=== PATIENT | female | born 1990 | race American Indian/Alaskan Native ===

== ENCOUNTER 2021-03-21 16:04 | Emergency (ER) | payer MEDICAID ==
[2021-03-21] MEDS ORDERED: ALBUTEROL 2.5 MG/3 ML NEBU IH ONE (16:17)
[2021-03-21] MEDS ORDERED: IPRATROPIUM 0.02% NEBU 2.5 ML IH ONE (16:17)
--- NOTE | 2021-03-21 16:21 | Event Note ---
ED Screening Note Date of service: 03/21/21 Time: 16:19 ED Screening Note: 30-year-old female patient with history of asthma presents to the emergency department with complaints of acute onset shortness of breath starting 2 hours ago. States she does not have a rescue inhaler. Symptoms are reminiscent of prior asthma exacerbations. Heart rate in the 80s. Oxygen saturation 100% on room air. General: Awake, appropriately interactive, appears uncomfortable. Neck: Supple. Full range of motion intact. Cardiovascular: Regular rate and rhythm. Normal peripheral perfusion. Pulmonary: Mild respiratory distress. Increased work of breathing. Diminished air movement. No wheezing or stridor. Skin: No apparent rashes or lesions. Neurological: No facial asymmetry. Speech is clear. Follows commands. Patient is alert and oriented. Musculoskeletal: Moves all four extremities spontaneously with normal range of motion. Psych: Cooperative. Appropriate mood and affect. Breathing treatment ordered. Respiratory therapist notified. EMT notified. I have greeted and performed a focused rapid initial assessment of this patient. A comprehensive ED assessment and evaluation of the patient, analysis of all test results, and completion of the medical decision-making process will be conducted by additional ED providers. This initial assessment/diagnostic orders/clinical plan/treatment(s) is/are subject to change based on patients health status, clinical progression and re-assessment. Further treatment and workup at subsequent clinical provider's discretion. Patient/guardian urged not to elope from the ED as their condition may be serious if not clinically assessed and managed.
[2021-03-21] MEDS ORDERED: ACETAMINOPHEN 325 MG TAB PO ONE (16:34)
[2021-03-21] MEDS ORDERED: predniSONE 50 MG TAB PO ONE (16:34)
--- NOTE | 2021-03-21 16:40 | Emergency Department Report ---
ED Asthma HPI - General Chief Complaint: Adult Asthma Stated Complaint: ASTHMA ATTACK Time Seen by Provider: 03/21/21 16:23 Source: patient Mode of arrival: Ambulatory Limitations: No Limitations - History of Present Illness Initial Comments: 30 year old female with known hx of asthma presents to ED with complaints of having an asthma attack. 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 She states she started with diffuse anterior chest and neck pain, as well as SOB, and wheezing. She states she did not have her inhaler. She states she hasn't had an inhaler in about 2 years. She also does not have a nebulizer. She states the last time she had a flare up of her asthma was about 1 yr ago. She states she went to [facility] ER and she was given nebulizer tx but was not given an rx for an inhaler. She denies any sore throat, cough, URI symptoms, fever chills or any other symptoms at this time. States that she is never been intubated or admitted for asthma in the past. MD Complaint: "asthma attack" -: Sudden (around 2 pm this afternoon ) - Related Data Previous Rx's Medication Instructions Recorded Last Taken Type Albuterol Mdi (or & Nicu Only) 2 puff IH QID PRN #8.5 gram 03/21/21 Unknown Rx [ProAir HFA Inhaler] predniSONE [Deltasone] 50 mg PO QDAY #4 tab 03/21/21 Unknown Rx Allergies Allergy/AdvReac Type Severity Reaction Status Date / Time No Known Allergies Allergy Unverified 03/21/21 16:11 ED Review of Systems ROS: Stated complaint: ASTHMA ATTACK Other details as noted in HPI Comment: All other systems reviewed and negative Constitutional: denies: chills, fever Eyes: denies: eye pain, eye discharge, vision change ENT: denies: ear pain, throat pain, dental pain, hearing loss, epistaxis, congestion Respiratory: shortness of breath, wheezing. denies: cough Cardiovascular: chest pain Gastrointestinal: denies: abdominal pain, nausea, vomiting, diarrhea, constipation, hematemesis, melena, hematochezia Musculoskeletal: denies: back pain, joint swelling, arthralgia Skin: denies: rash, lesions, change in color, change in hair/nails, pruritus Neurological: denies: headache, weakness, paresthesias Psychiatric: denies: anxiety, depression, auditory hallucinations, visual hallucinations, homicidal thoughts, suicidal thoughts Hematological/Lymphatic: denies: easy bleeding, easy bruising, swollen glands ED Past Medical Hx - Past Medical History Hx Asthma: Yes Additional medical history: Heart murmur - Surgical History Additional Surgical History: Tonsilectomy, Adeniodectomy - Social History Smoking Status: Never Smoker Substance Use Type: None - Medications Home Medications: Home Medications Medication Instructions Recorded Confirmed Last Taken Type Albuterol Mdi (or & Nicu Only) 2 puff IH QID PRN #8.5 gram 03/21/21 Unknown Rx [ProAir HFA Inhaler] predniSONE [Deltasone] 50 mg PO QDAY #4 tab 03/21/21 Unknown Rx ED Physical Exam - General Limitations: No Limitations General appearance: alert, in no apparent distress - Head Head exam: Present: atraumatic, normocephalic, normal inspection - Eye Eye exam: Present: normal appearance, PERRL, EOMI Pupils: Present: normal accommodation - ENT ENT exam: Present: normal exam, mucous membranes moist - Neck Neck exam: Present: normal inspection, full ROM. Absent: meningismus, lymphadenopathy - Respiratory Respiratory exam: Present: normal lung sounds bilaterally, decreased breath sounds (mild ). Absent: respiratory distress, wheezes, rales, rhonchi - Cardiovascular Cardiovascular Exam: Present: regular rate, normal rhythm, normal heart sounds - Neurological Exam Neurological exam: Present: alert, oriented X3, CN II-XII intact, normal gait - Psychiatric Psychiatric exam: Present: normal affect, normal mood - Skin Skin exam: Present: intact ED Course Vital Signs 03/21/21 03/21/21 03/21/21 16:11 16:38 17:47 Temperature 99.1 F Pulse Rate 86 Pulse Rate [ 73 Anterior Bilateral Throughout] Respiratory 22 16 Rate Respiratory 20 Rate [Anterior Bilateral Throughout] Blood Pressure 116/71 Blood Pressure [Left] O2 Sat by Pulse 100 Oximetry 03/21/21 18:01 Temperature Pulse Rate 66 Pulse Rate [ Anterior Bilateral Throughout] Respiratory 16 Rate Respiratory Rate [Anterior Bilateral Throughout] Blood Pressure Blood Pressure 156/80 [Left] O2 Sat by Pulse 100 Oximetry ED Medical Decision Making - Medical Decision Making Patient reports feeling better after nebulizer treatment. She was ambulated around the ER and maintaining O2 sat at 96/97% on room air and she had no complaints of shortness of breath nor did she appear short of breath. Repeat vital signs are stable. Patient overall is well-appearing, nontoxic and currently not in any respiratory distress. She is well-hydrated and neurologically intact with a normal gait. There is no indication for any additional treatment, or work-up or admission at this time. Patient will be discharged home with a prescription for an albuterol inhaler and prednisone and she will be given a referral to her primary care doctor. Discussed discharge instructions and treatment plan with patient. She expressed understanding of instructions and agree with plan. Patient was stable at time of discharge. Critical care attestation.: If time is entered above; I have spent that time in minutes in the direct care of this critically ill patient, excluding procedure time. ED Disposition Clinical Impression: Asthma exacerbation Disposition: DC-01 TO HOME OR SELFCARE Is pt being admited?: No Does the pt Need Aspirin: No Condition: Stable Instructions: Asthma, Adult Additional Instructions: I recommend that you use your albuterol inhaler as well as take the prednisone as prescribed. Follow-up closely with the primary care doctor listed in your discharge instructions. Return to the ER if your symptoms changes or worsens in any way. Prescriptions: predniSONE [Deltasone] 50 mg PO QDAY #4 tab Albuterol Mdi (or & Nicu Only) [ProAir HFA Inhaler] 2 puff IH QID PRN #8.5 gram PRN Reason: Shortness Of Breath Referrals: YUKI BLOOD MD [Staff Physician] - 3-5 Days Time of Disposition: 18:41
[2021-03-21 18:02] VITALS: BP 156/80
== END 2021-03-21 18:55 | disposition home or self-care (01) ==
LOC: ED 16:04
DX: J45.901 Unspecified asthma with (acute) exacerbation (principal); Z79.899 Other long term (current) drug therapy; Z98.890 Other specified postprocedural states; Z90.49 Acquired absence of other specified parts of digestive tract
CPT/HCPCS: 94640; 99283; J7512; 94644

== ENCOUNTER 2021-05-16 16:16 | Emergency (ER) | payer MEDICAID ==
[2021-05-16 17:49] VITALS: BP 146/74
--- NOTE | 2021-05-16 18:51 | Emergency Department Report ---
ED General Adult HPI - General Chief complaint: Pain General Stated complaint: PAIN IN THE LEGS AND HANDS Time Seen by Provider: 05/16/21 18:45 Source: patient Mode of arrival: Ambulatory Limitations: No Limitations - History of Present Illness Initial comments: Patient is a 30-year-old female who presents emergency room with complaints of intermittent joint pains and myalgias that began 5 weeks ago. She states occasionally she feels the pain in her arms and shoulders and then will feel the pain in her legs. She states occasionally she has tingling in her bilateral hands and bilateral legs. She denies any extremity swelling, fever, chills, nausea, vomiting, diarrhea, complete numbness, weakness. Patient is currently ambulatory without difficulty. No past medical history. No allergies to medications. - Related Data Previous Rx's Medication Instructions Recorded Last Taken Type Albuterol Mdi (or & Nicu Only) 2 puff IH QID PRN #8.5 gram 03/21/21 Unknown Rx [ProAir HFA Inhaler] predniSONE [Deltasone] 50 mg PO QDAY #4 tab 03/21/21 Unknown Rx Allergies Allergy/AdvReac Type Severity Reaction Status Date / Time No Known Allergies Allergy Verified 05/16/21 17:49 ED Review of Systems ROS: Stated complaint: PAIN IN THE LEGS AND HANDS Other details as noted in HPI Comment: All other systems reviewed and negative ED Past Medical Hx - Past Medical History Hx Asthma: Yes Additional medical history: Heart murmur - Surgical History Additional Surgical History: Tonsilectomy, Adeniodectomy - Social History Smoking Status: Never Smoker Substance Use Type: None - Medications Home Medications: Home Medications Medication Instructions Recorded Confirmed Last Taken Type Albuterol Mdi (or & Nicu Only) 2 puff IH QID PRN #8.5 gram 03/21/21 Unknown Rx [ProAir HFA Inhaler] predniSONE [Deltasone] 50 mg PO QDAY #4 tab 03/21/21 Unknown Rx ED Physical Exam - General Limitations: No Limitations General appearance: alert, in no apparent distress - Head Head exam: Present: atraumatic, normocephalic - Eye Eye exam: Present: normal appearance - ENT ENT exam: Present: mucous membranes moist - Respiratory Respiratory exam: Absent: respiratory distress, accessory muscle use - Extremities Exam Extremities exam: Present: other (no bony ttp of the BUE/BLE, FROM of the BUE/BLE, no edema, no deformity, no erythema, no increased warmth, no calf ttp, no skin changes, neurovascularly intact) - Neurological Exam Neurological exam: Present: alert, oriented X3 - Psychiatric Psychiatric exam: Present: normal affect, normal mood - Skin Skin exam: Present: warm, dry, intact ED Course Vital Signs 05/16/21 17:47 Temperature 98.5 F Pulse Rate 69 Respiratory 16 Rate Blood Pressure 146/74 O2 Sat by Pulse 100 Oximetry ED Medical Decision Making - Medical Decision Making Patient is a 30-year-old female who presents emergency room with complaints of intermittent joint pains and myalgias that began 5 weeks ago. She states occasionally she feels the pain in her arms and shoulders and then will feel the pain in her legs. She states occasionally she has tingling in her bilateral hands and bilateral legs. She denies any extremity swelling, fever, chills, nausea, vomiting, diarrhea, complete numbness, weakness. Patient is currently ambulatory without difficulty. No past medical history. No allergies to medications. Vitals are stable. On exam:no bony ttp of the BUE/BLE, FROM of the BUE/BLE, no edema, no deformity, no erythema, no increased warmth, no calf ttp, no skin changes, neurovascularly intact. Patient has no signs of cellulitis or septic joint at this time. She is ambulatory without difficulty. She has a normal gait, she has no focal neuro deficits. Patient has been having these symptoms intermittently for 5 weeks. I discussed the importance of primary care follow-up for further outpatient testing. Discussed return precautions in detail with patient. Advised patient May alternate Tylenol or ibuprofen as needed for discomfort. Please follow-up with your primary care doctor for further avinash luation. Return to emergency room for any new or worsening symptoms. Critical care attestation.: If time is entered above; I have spent that time in minutes in the direct care of this critically ill patient, excluding procedure time. ED Disposition Clinical Impression: Myalgia Joint pain Qualifiers: Joint pain location: unspecified Qualified Code(s): M25.50 - Pain in unspecified joint Disposition: DC-01 TO HOME OR SELFCARE Is pt being admited?: No Does the pt Need Aspirin: No Condition: Stable Instructions: Muscle Pain, Adult, Joint Pain, [id number] Additional Instructions: May alternate Tylenol or ibuprofen as needed for discomfort. Please follow-up with your primary care doctor for further evaluation. Return to emergency room for any new or worsening symptoms. Referrals: YUKI BLOOD MD [Staff Physician] - 3-5 Days [facility] [Provider Group] - 3-5 Days [facility] [Outside] - 3-5 Days [facility] [Outside] - 3-5 Days Forms: Work/School Release Form(ED) Time of Disposition: 18:53 Print Language: LAO
== END 2021-05-16 19:00 | disposition home or self-care (01) ==
LOC: ED 16:16
DX: M79.10 Myalgia, unspecified site (principal); M25.50 Pain in unspecified joint; J45.909 Unspecified asthma, uncomplicated; Z79.899 Other long term (current) drug therapy; Z90.49 Acquired absence of other specified parts of digestive tract
CPT/HCPCS: 99282

== ENCOUNTER 2022-03-05 14:00 | Emergency (ER) | payer SELFPAY ==
[2022-03-05 14:12] VITALS: BP 104/67
--- NOTE | 2022-03-05 14:55 | XRay Report ---
CHEST 2 VIEWS INDICATION / CLINICAL INFORMATION: SOB. Wheezing. Right chest pain. COMPARISON: None available. FINDINGS: SUPPORT DEVICES: None. HEART / MEDIASTINUM: The heart size and pulmonary vasculature are normal. The aorta is normal in geeta jeanine. LUNGS / PLEURA: No significant pulmonary or pleural abnormality. No pneumothorax. ADDITIONAL FINDINGS: There is mild thoracolumbar levoscoliosis. Mild deformity of the left upper rib cage is likely developmental. IMPRESSION: No acute findings. Signer Name: Ye Mullen MD Signed: 03/05/2022 2:51 PM Workstation Name: [id number] [email or web address]
[2022-03-05] MEDS ORDERED: ALBUTEROL 2.5 MG/3 ML NEBU IH ONE (16:16)
[2022-03-05] MEDS ORDERED: predniSONE 20 MG TAB PO ONE (16:17)
--- NOTE | 2022-03-05 16:17 | Emergency Department Report ---
Minor Respiratory - HPI Chief Complaint: Dyspnea/Respdistress Stated Complaint: ASTHMA ATTACK Time Seen by Provider: 03/05/22 16:15 ED Review of Systems ROS: Stated complaint: ASTHMA ATTACK Other details as noted in HPI Comment: All other systems reviewed and negative ED Past Medical Hx - Past Medical History Previous Medical History?: Yes Hx Hypertension: No Hx Diabetes: No Hx Deep Vein Thrombosis: No Hx Renal Disease: No Hx Sickle Cell Disease: No Hx Seizures: No Hx Asthma: Yes Hx HIV: No Additional medical history: Heart murmur - Surgical History Past Surgical History?: Yes Additional Surgical History: Tonsilectomy, Adeniodectomy - Family History Family history: no significant - Social History Smoking Status: Never Smoker - Medications Home Medications: Home Medications Medication Instructions Recorded Confirmed Last Taken Type Albuterol Sulfate [Proair 90 mcg IH QID PRN #1 [id number] 03/05/22 Unknown Rx Respiclick] Cetirizine HCl [ZyrTEC] 10 mg PO DAILY #30 capsule 03/05/22 Unknown Rx Fluticasone [Flonase] 1 spray NS QDAY #1 bottle 03/05/22 Unknown Rx predniSONE [Deltasone] 20 mg PO DAILY #5 tablet 03/05/22 Unknown Rx Minor Respiratory Exam - Exam General: Vital signs noted. No distress. Alert and acting appropriately. HEENT: Yes Moist Mucous Membranes, No Pharyngeal Erythema, No Pharyngeal Exudates, No Rhinorrhea, No Conjuctival Injection, No Frontal Tenderness, No Maxillary Tenderness Ear: Neither TM Bulge, Neither TM Erythema, Neither EAC Pain, Neither EAC Discharge Neck: Yes Supple, No Adenopathy Lungs: Yes Good Air Exchange, Yes Wheezes, No Ronchi, No Stridor, No Cough, No Labored Respirations, No Retractions, No Use of Accessory Muscles, No Other Abnormal Lung Sounds Heart: Yes Regular, No Murmur Abdomen: Yes Normal Bowel Sounds, No Tenderness, No Peritoneal Signs Skin: No Rash, No Edema Neurologic: Alert and oriented, no deficits. Musculoskeletal: Unremarkable. ED Course Vital Signs 03/05/22 14:04 Temperature 98.9 F Pulse Rate 102 H Respiratory 23 Rate Blood Pressure 104/67 O2 Sat by Pulse 100 Oximetry ED Medical Decision Making - Radiology Data Radiology results: report reviewed, image reviewed Critical care attestation.: If time is entered above; I have spent that time in minutes in the direct care of this critically ill patient, excluding procedure time. ED Disposition Clinical Impression: Asthma with acute exacerbation Disposition: 01 HOME / SELF CARE / HOMELESS Is pt being admited?: No Does the pt Need Aspirin: No Condition: Stable Instructions: Asthma, Adult Additional Instructions: MEDS ORDERED XRAY NORMAL FOLLOW UP WITH PCP IN 48 HOURS FOR RECHECK REFERRAL BELOW Referrals: YUKI BLOOD MD [Staff Physician] - 3-5 Days Time of Disposition: 16:50
== END 2022-03-05 18:28 | disposition home or self-care (01) ==
LOC: ED 14:00
DX: J45.901 Unspecified asthma with (acute) exacerbation (principal); Z90.49 Acquired absence of other specified parts of digestive tract; Z90.89 Acquired absence of other organs; Z79.899 Other long term (current) drug therapy
CPT/HCPCS: 71046; 94640; 99283